=== PATIENT | male | born 1980 | race Caucasian/White ===

== ENCOUNTER 2021-10-07 16:02 | Emergency (ER) | payer MEDICAID ==
[~2021-10-07] VITALS: Ht 185.4 cm; Wt 83.9 kg
[2021-10-07] MEDS ORDERED: CLONOPIN PO (16:11)
--- NOTE | 2021-10-07 16:11 | NUR ---
PT WAS PLACED IN WAITING AREA. NO AVAILABLE BEDS IN ER AT THIS TIME.
--- NOTE | 2021-10-07 16:25 | NUR ---
DR MORALES TALKED TO THE PT. PT ELOPED FROM ER AFTER THAT.
== END 2021-10-07 16:28 | disposition left against medical advice (07) ==
LOC: ER 16:02
DX: F41.9 Anxiety disorder, unspecified (principal); Z76.0 Encounter for issue of repeat prescription; F41.0 Panic disorder [episodic paroxysmal anxiety]
CPT/HCPCS: A4663

== ENCOUNTER 2021-10-30 20:24 | Emergency (ER) | payer MEDICAID ==
[~2021-10-30] VITALS: Ht 185.4 cm; Wt 83.9 kg
[~2021-10-30 20:24] MED LIST: CLONOPIN PO
--- NOTE | 2021-10-30 20:38 | NUR ---
Dr. Watson at bedside for MSE.
[2021-10-30] MEDS ORDERED: ONDANSETRON ODT 4 MG TAB.RAPDIS SL ONE (20:45)
[2021-10-30] MEDS ORDERED: CODE1CAP24 PO (20:45)
[2021-10-30] MEDS ORDERED: BUTALB/ACETAMINOPHEN/CAFFEINE CAPSULE PO PRN (20:45)
[2021-10-30] MEDS ORDERED: HYDROCODONE/APAP 10-325 MG TABLET PO ONE (20:45)
[2021-10-30] MEDS ORDERED: BUTALB/ACETAMINOPHEN/CAFFEINE CAPSULE ONE (20:54)
[2021-10-30] MEDS ORDERED: ONDANSETRON ODT 4 MG TAB.RAPDIS ONE (20:54)
[2021-10-30] MEDS ORDERED: HYDROCODONE/APAP 10-325 MG TABLET ONE (20:55)
--- NOTE | 2021-10-30 20:55 | NUR ---
Patient given written and verbal discharge instructions. Patient verbalizes understanding of instructions. Patient is ambulatory with steady gait. Refuses offer of residential placement. Patient given list of available shelters in surrounding area. Pt out of ER with steady gait, no acute signs of distress, VSS, all belongings taken.
[2021-10-30 20:56] VITALS: BP 129/87
== END 2021-10-30 20:57 | disposition home or self-care (01) ==
LOC: ER 20:26
DX: G43.909 Migraine, unspecified, not intractable, without status migrainosus (principal); F41.9 Anxiety disorder, unspecified; Z79.899 Other long term (current) drug therapy
CPT/HCPCS: A4663; Q0162

== ENCOUNTER 2021-11-04 15:50 | Emergency (ER) | payer MEDICAID ==
[~2021-11-04] VITALS: Ht 185.4 cm; Wt 86.2 kg
[~2021-11-04 15:50] MED LIST changes: +CODE1CAP24 PO
[2021-11-04] MEDS ORDERED: DIPH25CA83 PO (16:13)
[2021-11-04] MEDS ORDERED: METO-295 PO (16:13)
[2021-11-04] MEDS ORDERED: diphenhydrAMINE 50 MG/1 ML VIAL IM ONE (16:15)
[2021-11-04] MEDS ORDERED: METOCLOPRAMIDE HCL 10 MG/2 ML VIAL IM ONE (16:15)
[2021-11-04] MEDS ORDERED: diphenhydrAMINE 50 MG/1 ML VIAL ONE (16:16)
[2021-11-04] MEDS ORDERED: METOCLOPRAMIDE HCL 10 MG/2 ML VIAL ONE (16:17)
--- NOTE | 2021-11-04 16:23 | NUR ---
Gave pt RX and d/c instructions, pt verbalized understanding. Not driving
== END 2021-11-04 16:29 | disposition home or self-care (01) ==
LOC: ER 15:50
DX: G43.909 Migraine, unspecified, not intractable, without status migrainosus (principal); Z59.01 Sheltered homelessness; K51.90 Ulcerative colitis, unspecified, without complications
CPT/HCPCS: 96372 ×2; 99284; J1200; J2765; A4663

== ENCOUNTER → 2022-01-16 | Emergency (ER) | payer MEDICAID ==
[~2022-01-16] VITALS: Ht 185.4 cm; Wt 90.7 kg
[~2022-01-16] MED LIST changes: +DIPH25CA83 PO; +IV NS 1000 ML 1,000 ML IV ONE; +KETOROLAC TROMETHAMINE 30 MG INJ IVP ONE; +KETOROLAC TROMETHAMINE 30 MG INJ ONE; +MAGNESIUM SULFATE/D5W 200 ML ONE; +METO-295 PO; +METOCLOPRAMIDE HCL 10 MG/2 ML VIAL IV ONE; +METOCLOPRAMIDE HCL 10 MG/2 ML VIAL ONE; +diphenhydrAMINE 50 MG/1 ML VIAL IV ONE; +diphenhydrAMINE 50 MG/1 ML VIAL ONE
--- NOTE | 2022-01-16 19:30 | NUR ---
Brief report received from charge machine operator Nathaniel BARRETT using SBAR method. Pt has good color and temp, but has desheveled, grimmy unkept appearance. VSS, PE WNL. Pt appears to be a healthy individual with no serious med issues, poss psych history as he appears to be living on the streets aeb torn grimmy cloths, the layering of clothes one on top of the other. Pt is AAOx4, completely lucid and appears bright and soft spoken, is able to carry a conversation. 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 So pt's story is a little suspect.
[2022-01-16] MEDS: MAGNESIUM SULFATE/D5W 100 ML IV SCH ×2 (22:11→22:26)
--- NOTE | 2022-01-16 23:30 | NUR ---
EDMD at bedside to discuss dispo with pt. MATHEW paperwork will be printed out next.
== END | disposition home or self-care (01) ==
LOC: ER 19:21
DX: G43.909 Migraine, unspecified, not intractable, without status migrainosus (principal); R00.0 Tachycardia, unspecified; Z59.01 Sheltered homelessness; F41.9 Anxiety disorder, unspecified; G47.00 Insomnia, unspecified
CPT/HCPCS: 96361; 96365; 96375; 99284; J1200; J1885; J2765; J3475; A4663; J7030

== ENCOUNTER 2022-02-23 22:57 | Emergency (ER) | payer MEDICAID ==
[~2022-02-23] VITALS: Ht 185.4 cm; Wt 88.5 kg
[~2022-02-23 22:57] MED LIST changes: -IV NS 1000 ML 1,000 ML IV ONE; -KETOROLAC TROMETHAMINE 30 MG INJ IVP ONE; -KETOROLAC TROMETHAMINE 30 MG INJ ONE; -MAGNESIUM SULFATE/D5W 200 ML ONE; -METOCLOPRAMIDE HCL 10 MG/2 ML VIAL IV ONE; -METOCLOPRAMIDE HCL 10 MG/2 ML VIAL ONE; -diphenhydrAMINE 50 MG/1 ML VIAL IV ONE; -diphenhydrAMINE 50 MG/1 ML VIAL ONE
--- NOTE | 2022-02-23 23:12 | NUR ---
Dr Watson into eval patient.
[2022-02-23] MEDS ORDERED: HYDROMORPHONE 1 MG/1 ML DISP.SYRIN IM ONE (23:15)
[2022-02-23] MEDS ORDERED: ONDANSETRON ODT 4 MG TAB.RAPDIS SL ONE (23:15)
[2022-02-23] MEDS ORDERED: BUTALB/ACETAMINOPHEN/CAFFEINE CAPSULE PO PRN (23:15)
[2022-02-23] MEDS ORDERED: CODE1CAP24 PO (23:17)
[2022-02-23] MEDS ORDERED: ONDANSETRON ODT 4 MG TAB.RAPDIS ONE (23:23)
[2022-02-23] MEDS ORDERED: BUTALB/ACETAMINOPHEN/CAFFEINE CAPSULE ONE (23:24)
[2022-02-23] MEDS ORDERED: HYDROMORPHONE 2 MG/1 ML DISP.SYRIN ONE (23:24)
--- NOTE | 2022-02-23 23:30 | NUR ---
Patient given written and verbal discharge instructions. Patient verbalizes understanding of instructions. Patient is ambulatory with steady gait. Refuses offer of group home placement. Patient given list of available shelters in surrounding area.
[2022-02-23 23:31] VITALS: BP 118/66
== END 2022-02-23 23:31 | disposition home or self-care (01) ==
LOC: ER 22:59
DX: G43.909 Migraine, unspecified, not intractable, without status migrainosus (principal); Z59.00 Homelessness unspecified; G47.00 Insomnia, unspecified; F41.9 Anxiety disorder, unspecified
CPT/HCPCS: 96372; 99283; J1170; A4663; Q0162

== ENCOUNTER 2022-03-26 20:04 | Emergency (ER) | payer MEDICAID ==
[~2022-03-26] VITALS: Ht 182.9 cm; Wt 86.2 kg
[2022-03-26] MEDS ORDERED: diphenhydrAMINE 50 MG/1 ML VIAL IM ONE (21:15)
[2022-03-26] MEDS ORDERED: METOCLOPRAMIDE HCL 10 MG/2 ML VIAL IM ONE (21:15)
[2022-03-26] MEDS ORDERED: diphenhydrAMINE 50 MG/1 ML VIAL ONE (21:16)
[2022-03-26] MEDS ORDERED: METOCLOPRAMIDE HCL 10 MG/2 ML VIAL ONE (21:16)
[2022-03-26] MEDS ORDERED: CODE1CAP24 PO (23:38)
[2022-03-26 23:48] VITALS: BP 130/80
== END 2022-03-26 23:49 | disposition home or self-care (01) ==
LOC: ER 20:05
DX: G43.909 Migraine, unspecified, not intractable, without status migrainosus (principal); F17.210 Nicotine dependence, cigarettes, uncomplicated; Z59.00 Homelessness unspecified; K51.90 Ulcerative colitis, unspecified, without complications
CPT/HCPCS: A4663; J1200; J2765

== ENCOUNTER 2022-04-09 13:52 | Emergency (ER) | payer MEDICAID ==
[~2022-04-09] VITALS: Ht 185.4 cm; Wt 88.5 kg
[2022-04-09] MEDS ORDERED: diphenhydrAMINE 50 MG/1 ML VIAL IM ONE (14:15)
[2022-04-09] MEDS ORDERED: METOCLOPRAMIDE HCL 10 MG/2 ML VIAL IM ONE (14:15)
[2022-04-09] MEDS ORDERED: CODE1CAP24 PO (14:20)
[2022-04-09] MEDS ORDERED: METO-295 PO (14:20)
[2022-04-09] MEDS ORDERED: METOCLOPRAMIDE HCL 10 MG/2 ML VIAL ONE (14:23)
[2022-04-09] MEDS ORDERED: diphenhydrAMINE 50 MG/1 ML VIAL ONE (14:23)
--- NOTE | 2022-04-09 14:35 | NUR ---
Medications given as ordered. Patient states he is not driving and is taking the bus today. DC, Rx (including all Rx precautions and warnings) given and explained to patient who states he understands all instructions
== END 2022-04-09 14:36 | disposition home or self-care (01) ==
LOC: ER 13:52
DX: G43.909 Migraine, unspecified, not intractable, without status migrainosus (principal); Z76.0 Encounter for issue of repeat prescription; F17.210 Nicotine dependence, cigarettes, uncomplicated; K51.90 Ulcerative colitis, unspecified, without complications; M19.90 Unspecified osteoarthritis, unspecified site
CPT/HCPCS: 96372 ×2; 99284; 99406; J1200; J2765; A4663

== ENCOUNTER 2022-04-18 15:54 | Emergency (ER) | payer MEDICAID ==
[~2022-04-18] VITALS: Ht 185.4 cm; Wt 88.5 kg
[2022-04-18] MEDS ORDERED: METO-295 PO (16:44)
[2022-04-18] MEDS ORDERED: METOCLOPRAMIDE HCL 10 MG/2 ML VIAL ONE (16:44)
[2022-04-18] MEDS ORDERED: BUTA1CAP46 PO (16:44)
[2022-04-18] MEDS ORDERED: diphenhydrAMINE 50 MG/1 ML VIAL ONE (16:44)
[2022-04-18] MEDS ORDERED: KETOROLAC TROMETHAMINE 60 MG INJ IM ONE ×2 (16:44→16:45)
[2022-04-18] MEDS ORDERED: diphenhydrAMINE 50 MG/1 ML VIAL IM ONE (16:45)
[2022-04-18] MEDS ORDERED: METOCLOPRAMIDE HCL 10 MG/2 ML VIAL IM ONE (16:45)
--- NOTE | 2022-04-18 16:51 | NUR ---
PT WAS EVALUATED BY DR BAKER. PT WAS D/C'd TO HOME. D/C INSTRUCTIONS GIVEN TO THE PT BY DR BAKER.
[2022-04-18 16:54] VITALS: BP 142/78
== END 2022-04-18 17:25 | disposition home or self-care (01) ==
LOC: ER 15:56
DX: G43.909 Migraine, unspecified, not intractable, without status migrainosus (principal); Z76.0 Encounter for issue of repeat prescription; F17.210 Nicotine dependence, cigarettes, uncomplicated
CPT/HCPCS: 96372 ×2; 99284; J1200; J1885; J2765; A4663

== ENCOUNTER 2022-05-21 19:50 | Emergency (ER) | payer MEDICAID ==
[~2022-05-21] VITALS: Ht 185.4 cm; Wt 88.5 kg
[~2022-05-21 19:50] MED LIST changes: +BUTA1CAP46 PO
--- NOTE | 2022-05-21 20:18 | NUR ---
Dr. Mckeon at bedside for MSE.
[2022-05-21] MEDS ORDERED: diphenhydrAMINE 50 MG/1 ML VIAL ONE (20:25)
[2022-05-21] MEDS ORDERED: METOCLOPRAMIDE HCL 10 MG/2 ML VIAL ONE (20:25)
[2022-05-21] MEDS ORDERED: diphenhydrAMINE 50 MG/1 ML VIAL IM ONE (20:30)
[2022-05-21] MEDS ORDERED: METOCLOPRAMIDE HCL 10 MG/2 ML VIAL IM ONE (20:30)
[2022-05-21] MEDS ORDERED: CODE1CAP24 PO (21:08)
--- NOTE | 2022-05-21 21:12 | NUR ---
Patient given written and verbal discharge instructions. Patient verbalizes understanding of instructions. Patient is ambulatory with steady gait. Refuses offer of half-way placement. Patient given list of available shelters in surrounding area. VSS, no acute signs of distress, all belongings taken, refuses all other services available at this time.
[2022-05-21 21:14] VITALS: BP 142/89
== END 2022-05-21 21:14 | disposition home or self-care (01) ==
LOC: ER 19:52
DX: G43.909 Migraine, unspecified, not intractable, without status migrainosus (principal); F17.210 Nicotine dependence, cigarettes, uncomplicated
CPT/HCPCS: 96372; 99283; 99406; J1200; J2765; A4663

== ENCOUNTER 2022-06-18 19:10 | Emergency (ER) | payer MEDICAID ==
[~2022-06-18] VITALS: Ht 185.4 cm; Wt 93.0 kg
--- NOTE | 2022-06-18 20:10 | NUR ---
Dr bal at bedside, MSE in progress.
[2022-06-18] MEDS ORDERED: CODE1CAP24 PO (20:18)
[2022-06-18] MEDS ORDERED: KETOROLAC TROMETHAMINE 30 MG INJ ONE (20:19)
[2022-06-18] MEDS ORDERED: KETOROLAC TROMETHAMINE 30 MG INJ IM ONE (20:30)
--- NOTE | 2022-06-18 20:36 | NUR ---
Patient discharged to home in stable condition. Written and verbal after care instructions given. Patient verbalizes understanding of instructions. Stressed follow up or return to ER for worsening s/s. pt ambulated with steady gait. denies pain. no SOB. no Chest pain. AOx4
[2022-06-18 20:37] VITALS: BP 127/74
== END 2022-06-18 20:39 | disposition home or self-care (01) ==
LOC: ER 19:10
DX: G43.909 Migraine, unspecified, not intractable, without status migrainosus (principal); Z76.0 Encounter for issue of repeat prescription; F17.210 Nicotine dependence, cigarettes, uncomplicated; Z59.00 Homelessness unspecified
CPT/HCPCS: 99283; 96372; J1885; A4663

== ENCOUNTER 2022-06-29 09:19 | Emergency (ER) | payer MEDICAID ==
[~2022-06-29] VITALS: Ht 185.4 cm; Wt 90.7 kg
--- NOTE | 2022-06-29 09:48 | NUR ---
PT IS IN ROOM #3. DR HAYES EVALUATED THE PT.
[2022-06-29] MEDS ORDERED: HYDR-3972 PO (10:11)
--- NOTE | 2022-06-29 10:23 | NUR ---
PT WAS D/C'd TO HOME. S/C INSTRUCTIONS GIVEN TO THE PT BY DR HAYES.
[2022-06-29 10:24] VITALS: BP 136/88
== END 2022-06-29 10:24 | disposition home or self-care (01) ==
LOC: ER 09:19
DX: S02.92XD Unspecified fracture of facial bones, subsequent encounter for fracture with routine healing (principal); Y09 Assault by unspecified means; Z76.0 Encounter for issue of repeat prescription; G89.29 Other chronic pain
CPT/HCPCS: A4663

== ENCOUNTER 2022-07-09 18:03 | Emergency (ER) | payer MEDICAID ==
[~2022-07-09] VITALS: Ht 185.4 cm; Wt 90.7 kg
[~2022-07-09 18:03] MED LIST changes: +HYDR-3972 PO
--- NOTE | 2022-07-09 18:34 | NUR ---
PT IS IN ROOM #2A. DR MORALES EVALUATED THE PT.
--- NOTE | 2022-07-09 19:03 | NUR ---
PT WAS D/C'd TO HOME. D/C INSTRUCTIONS GIVEN TO THE PT BY DR MORALES.
[2022-07-09 19:04] VITALS: BP 145/72
== END 2022-07-09 19:05 | disposition home or self-care (01) ==
LOC: ER 18:03
DX: R51.9 Headache, unspecified (principal); Z76.0 Encounter for issue of repeat prescription; S02.92XD Unspecified fracture of facial bones, subsequent encounter for fracture with routine healing; Y09 Assault by unspecified means; F17.210 Nicotine dependence, cigarettes, uncomplicated
CPT/HCPCS: A4663

== ENCOUNTER 2022-08-24 17:32 | Emergency (ER) | payer MEDICAID ==
[~2022-08-24] VITALS: Ht 182.9 cm; Wt 86.2 kg
--- NOTE | 2022-08-24 19:15 | NUR ---
change of shift report from Hanny BARRETT
[2022-08-24] MEDS ORDERED: HYDR-4209 PO (20:36)
--- NOTE | 2022-08-24 20:39 | NUR ---
Patient discharged to home in stable condition. Written and verbal after care instructions given. Patient verbalizes understanding of instructions. Stressed follow up or return to ER for worsening s/s. Patient is a/ox4, NAD noted. patient is able to walk with steady gait.
[2022-08-24 20:40] VITALS: BP 115/75
== END 2022-08-24 20:41 | disposition home or self-care (01) ==
LOC: ER 17:37
DX: S92.252D Displaced fracture of navicular [scaphoid] of left foot, subsequent encounter for fracture with routine healing (principal); X58.XXXD Exposure to other specified factors, subsequent encounter; M89.8X8 Other specified disorders of bone, other site; Z91.19 Patient's noncompliance with other medical treatment and regimen; F17.210 Nicotine dependence, cigarettes, uncomplicated; G43.909 Migraine, unspecified, not intractable, without status migrainosus
CPT/HCPCS: 73110; A4663

== ENCOUNTER 2022-10-31 12:56 | Emergency (ER) | payer MEDICAID ==
[~2022-10-31] VITALS: Ht 182.9 cm; Wt 87.3 kg
[~2022-10-31 12:56] MED LIST changes: +HYDR-4209 PO
[2022-10-31 14:00] LABS: HEMATOCRIT 39.3 % (36.7-47.1); MEAN CORPUSCULAR VOLUME 89.5 fL (73.0-96.2); PLATELET COUNT (AUTO) 301 K/uL (152-348)
[2022-10-31 14:12] LABS: ALANINE AMINOTRANSFERASE 30 U/L (16-63); ALKALINE PHOSPHATASE 93 U/L (50-136); ASPARTATE AMINOTRANSFERASE 16 U/L (15-37); BILIRUBIN,DIRECT 0.1 mg/dL (0.0-0.2); BILIRUBIN,TOTAL 0.5 mg/dL (0.2-1.0); CARBON DIOXIDE 25 mmol/L (21-32); CHLORIDE 105 mmol/L (98-107); CREATININE 1.1 mg/dL (0.6-1.3); GLUCOSE 103 mg/dL (74-106); POTASSIUM 3.8 mmol/L (3.5-5.1); TOTAL PROTEIN, SERUM 7.4 g/dL (6.4-8.2); UREA NITROGEN, BLOOD 18 mg/dL (7-18)
[2022-10-31 14:13] LABS: *BILIRUBIN,URIN NEGATIVE (NEGATIVE); *BLOOD, URINE NEGATIVE (NEGATIVE); *CLARITY,URINE CLEAR (CLEAR); *COLOR,URINE YELLOW (YELLOW); *KETONES,URINE NEGATIVE (NEGATIVE); *UROBILINOGEN,URINE 0.2 E.U./dl (NORMAL); LEUKOCYTE ESTERASE ,URINE NEGATIVE (NEGATIVE); NITRITE, URINE NEGATIVE (NEGATIVE); PH,URINE 8.5 (5.0-8.0); UGLUCOSE NEGATIVE (NEGATIVE)
[2022-10-31 14:16] LABS: ACETAMINOPHEN < 2.0 ug/mL (10-30); ETHANOL < 3 MG/DL (0-0)
[2022-10-31 14:26] LABS: *AMPHETAMINE, URINE NEGATIVE (NEGATIVE); *CANNABINOID, URINE NEGATIVE (NEGATIVE); *COCCAINE, URINE NEGATIVE (NEGATIVE); *OPIATE, URINE NEGATIVE (NEGATIVE); *PHENCYCLIDINE SCREEN,URINE NEGATIVE (NEGATIVE)
--- NOTE | 2022-10-31 15:38 | NUR ---
Pt arrived with c/o suicidal ideation, stated that his plan is to get hit by cars. Pt also has a fx of the right scaphoid. Seen by MARK for MSE.
--- NOTE | 2022-10-31 15:39 | NUR ---
Called [facility] in [place] and tallked to Geraldine from intake dept about pt's voluntary admission to the facility. Sent copy of the clinicals and they will be calling back once they have evaluated the pt's information. Call # and fax # .
[2022-10-31] MEDS ORDERED: KETOROLAC TROMETHAMINE 15 MG INJ IM ONE (16:00)
[2022-10-31] MEDS ORDERED: ACETAMINOPHEN 325 MG TABLET PO ONE (16:00)
[2022-10-31] MEDS ORDERED: ACETAMINOPHEN 325 MG TABLET ONE (16:07)
[2022-10-31] MEDS ORDERED: KETOROLAC TROMETHAMINE 15 MG INJ ONE (16:07)
--- NOTE | 2022-10-31 18:51 | NUR ---
Called Intake Department from [facility] regarding pt's transfer status, spoke to Unique stated that they will call back once pt is cleared to be admitted.
--- NOTE | 2022-10-31 23:50 | NUR ---
Joan from [facility] intake gave transfer info. Patient will be going to [facility] with accepting MD DR Donis. Call for report is
[2022-11-01 02:12] VITALS: BP 147/76
--- NOTE | 2022-11-01 02:17 | NUR ---
Gave SBAR report [facility] ambulance unit [id number].
== END 2022-11-01 03:11 ==
LOC: ER 12:57
DX: R45.851 Suicidal ideations (principal); F32.A Depression, unspecified; Z59.00 Homelessness unspecified; K51.90 Ulcerative colitis, unspecified, without complications; F41.9 Anxiety disorder, unspecified; Z83.3 Family history of diabetes mellitus; Z82.49 Family history of ischemic heart disease and other diseases of the circulatory system; F19.10 Other psychoactive substance abuse, uncomplicated; S62.102K Fracture of unspecified carpal bone, left wrist, subsequent encounter for fracture with nonunion; X58.XXXD Exposure to other specified factors, subsequent encounter; Z20.822 Contact with and (suspected) exposure to COVID-19
CPT/HCPCS: 80076; 80048; 81003; 85025; 87426; 36415; 99285; 96372; 80299; 80320; 80307; J1885; A4663; G0480

== ENCOUNTER 2022-11-17 21:33 | Emergency (ER) | payer MEDICAID ==
[~2022-11-17] VITALS: Ht 182.9 cm; Wt 88.5 kg
[2022-11-17 22:51] LABS: HEMATOCRIT 42.1 % (36.7-47.1); PLATELET COUNT (AUTO) 281 K/uL (152-348)
[2022-11-17 22:53] LABS: CREATININE 1.3 mg/dL (0.6-1.3); POTASSIUM 3.6 mmol/L (3.5-5.1)
[2022-11-17 23:01] LABS: ETHANOL < 3 MG/DL (0-0)
[2022-11-17 23:06] LABS: *BILIRUBIN,URIN NEGATIVE (NEGATIVE); *BLOOD, URINE NEGATIVE (NEGATIVE); *CLARITY,URINE CLEAR (CLEAR); *COLOR,URINE YELLOW (YELLOW); *KETONES,URINE 1+ (NEGATIVE); *UROBILINOGEN,URINE 0.2 E.U./dl (NORMAL); LEUKOCYTE ESTERASE ,URINE NEGATIVE (NEGATIVE); NITRITE, URINE NEGATIVE (NEGATIVE); UGLUCOSE NEGATIVE (NEGATIVE)
[2022-11-17 23:14] LABS: *AMPHETAMINE, URINE NEGATIVE (NEGATIVE); *CANNABINOID, URINE NEGATIVE (NEGATIVE); *COCCAINE, URINE NEGATIVE (NEGATIVE); *OPIATE, URINE NEGATIVE (NEGATIVE); *PHENCYCLIDINE SCREEN,URINE NEGATIVE (NEGATIVE)
--- NOTE | 2022-11-18 02:03 | NUR ---
Medically cleared by Dr Lepe. Called [facility] intake [phone] and spoke to Rodríguez who requested for clinical to be faxed to .
--- NOTE | 2022-11-18 03:45 | NUR ---
ART FROM [facility] INTAKE CALLED BACK WITH TRANSFER INFO. PATIENT WILL BE GOING TO [facility]. DR RAMIREZ IS ACCEPTING MD. CALL FOR REPORT IS
--- NOTE | 2022-11-18 04:14 | NUR ---
Called Becky BARRETT from [facility], endorsed pt. status
[2022-11-18 04:56] VITALS: BP 120/80
== END 2022-11-18 04:14 ==
LOC: ER 21:34
DX: F32.A Depression, unspecified (principal); R45.851 Suicidal ideations; Z59.00 Homelessness unspecified; Z20.822 Contact with and (suspected) exposure to COVID-19; K51.90 Ulcerative colitis, unspecified, without complications; Z83.3 Family history of diabetes mellitus; Z82.49 Family history of ischemic heart disease and other diseases of the circulatory system
CPT/HCPCS: 36415; 85025; A4663; G0480

== ENCOUNTER 2022-11-24 15:08 | Emergency (ER) | payer MEDICAID ==
[~2022-11-24] VITALS: Ht 182.9 cm; Wt 88.5 kg
--- NOTE | 2022-11-24 16:12 | NUR ---
AYAD contacted Elvis at [facility] ([phone]) and faxed the patient's facesheet (fax: [phone]). AYAD informed nurseRodríguez.
[2022-11-24 19:42] LABS: HEMATOCRIT 42.1 % (36.7-47.1); MEAN CORPUSCULAR HEMOGLOBIN 31.1 uug (23.8-33.4); MEAN CORPUSCULAR VOLUME 90.1 fL (73.0-96.2); PLATELET COUNT (AUTO) 295 K/uL (152-348)
[2022-11-24 20:14] LABS: THYROID STIMULATING HORMONE 2.572 mIU/mL (0.358-3.740)
[2022-11-24 20:21] LABS: ETHANOL < 3 MG/DL (0-0)
[2022-11-24 20:24] LABS: CARBON DIOXIDE 22 mmol/L (21-32); CHLORIDE 106 mmol/L (98-107); CREATININE 1.1 mg/dL (0.6-1.3); GLUCOSE 112 mg/dL (74-106); POTASSIUM 3.3 mmol/L (3.5-5.1); UREA NITROGEN, BLOOD 15 mg/dL (7-18)
[2022-11-24 20:30] LABS: ALANINE AMINOTRANSFERASE 24 U/L (16-63); ALKALINE PHOSPHATASE 84 U/L (50-136); ASPARTATE AMINOTRANSFERASE 16 U/L (15-37); BILIRUBIN,DIRECT 0.1 mg/dL (0.0-0.2); BILIRUBIN,TOTAL 0.5 mg/dL (0.2-1.0)
[2022-11-24 20:31] LABS: ACETAMINOPHEN < 2.0 ug/mL (10-30)
[2022-11-24 21:17] LABS: *BILIRUBIN,URIN NEGATIVE (NEGATIVE); *BLOOD, URINE NEGATIVE (NEGATIVE); *CLARITY,URINE CLEAR (CLEAR); *COLOR,URINE YELLOW (YELLOW); *KETONES,URINE NEGATIVE (NEGATIVE); *UROBILINOGEN,URINE 0.2 E.U./dl (NORMAL); LEUKOCYTE ESTERASE ,URINE NEGATIVE (NEGATIVE); NITRITE, URINE NEGATIVE (NEGATIVE); PH,URINE 7.5 (5.0-8.0); UGLUCOSE NEGATIVE (NEGATIVE)
--- NOTE | 2022-11-24 21:25 | NUR ---
Spoke to [facility], given fax #
[2022-11-24 21:26] LABS: *AMPHETAMINE, URINE POSITIVE (NEGATIVE); *CANNABINOID, URINE NEGATIVE (NEGATIVE); *COCCAINE, URINE POSITIVE (NEGATIVE); *OPIATE, URINE NEGATIVE (NEGATIVE); *PHENCYCLIDINE SCREEN,URINE NEGATIVE (NEGATIVE)
--- NOTE | 2022-11-24 21:43 | NUR ---
Received confirmation that fax went through.
[2022-11-25] MEDS ORDERED: LORAZEPAM 0.5 MG TABLET PO ONE (01:00)
--- NOTE | 2022-11-25 01:20 | NUR ---
Called [facility] ambulance to transport patient to [facility]. ETA is 90mins.
--- NOTE | 2022-11-25 01:23 | NUR ---
Gave SBAR report to Balwinder. [facility] [place].
[2022-11-25] MEDS ORDERED: LORAZEPAM 1 MG TABLET ONE (01:50)
--- NOTE | 2022-11-25 02:51 | NUR ---
Gave SBAR report to [facility] unit [facility], who will take patient to [facility].
== END 2022-11-25 03:11 | disposition short-term general hospital (02) ==
LOC: ER 15:08
DX: F32.A Depression, unspecified (principal); F19.10 Other psychoactive substance abuse, uncomplicated; F17.210 Nicotine dependence, cigarettes, uncomplicated; K51.90 Ulcerative colitis, unspecified, without complications; Z59.00 Homelessness unspecified; Z83.3 Family history of diabetes mellitus; Z82.49 Family history of ischemic heart disease and other diseases of the circulatory system
CPT/HCPCS: 36415; 84443; 85025; A4663; G0480

== ENCOUNTER 2022-12-03 12:13 | Emergency (ER) | payer MEDICAID ==
[~2022-12-03] VITALS: Ht 182.9 cm; Wt 88.5 kg
[2022-12-03] MEDS ORDERED: ONDANSETRON HCL 4 MG TABLET PO ONE (13:00)
[2022-12-03] MEDS ORDERED: LORAZEPAM 0.5 MG TABLET PO ONE (13:00)
[2022-12-03 13:01] LABS: HEMATOCRIT 42.5 % (36.7-47.1); MEAN CORPUSCULAR HEMOGLOBIN 30.5 uug (23.8-33.4); MEAN CORPUSCULAR VOLUME 90.9 fL (73.0-96.2); PLATELET COUNT (AUTO) 252 K/uL (152-348)
[2022-12-03 13:14] LABS: ALANINE AMINOTRANSFERASE 146 U/L (16-63); ALKALINE PHOSPHATASE 118 U/L (50-136); ASPARTATE AMINOTRANSFERASE 117 U/L (15-37); BILIRUBIN,DIRECT 0.1 mg/dL (0.0-0.2); BILIRUBIN,TOTAL 0.3 mg/dL (0.2-1.0); CARBON DIOXIDE 27 mmol/L (21-32); CHLORIDE 101 mmol/L (98-107); CREATININE 1.1 mg/dL (0.6-1.3); GLUCOSE 118 mg/dL (74-106); POTASSIUM 3.8 mmol/L (3.5-5.1); TOTAL PROTEIN, SERUM 7.9 g/dL (6.4-8.2); UREA NITROGEN, BLOOD 14 mg/dL (7-18)
[2022-12-03] MEDS ORDERED: LORAZEPAM 0.5 MG TABLET ONE (13:15)
[2022-12-03] MEDS ORDERED: ONDANSETRON HCL 4 MG TABLET ONE (13:15)
--- NOTE | 2022-12-03 13:43 | NUR ---
AYAD spoke over the phone with and faxed the patient's facesheet and history and physical to Rodríguez from [facility] (fax: [phone]). AYAD informed patient's nurse, Hilary and AYAD will continue to follow up.
[2022-12-03 13:45] LABS: *BILIRUBIN,URIN NEGATIVE (NEGATIVE); *BLOOD, URINE NEGATIVE (NEGATIVE); *CLARITY,URINE CLEAR (CLEAR); *COLOR,URINE YELLOW (YELLOW); *KETONES,URINE NEGATIVE (NEGATIVE); LEUKOCYTE ESTERASE ,URINE NEGATIVE (NEGATIVE); NITRITE, URINE NEGATIVE (NEGATIVE); PH,URINE 7.5 (5.0-8.0); UGLUCOSE NEGATIVE (NEGATIVE)
[2022-12-03 13:54] LABS: ACETAMINOPHEN < 2.0 ug/mL (10-30); ETHANOL < 3 MG/DL (0-0)
[2022-12-03 14:19] LABS: *AMPHETAMINE, URINE NEGATIVE (NEGATIVE); *CANNABINOID, URINE POSITIVE (NEGATIVE); *COCCAINE, URINE POSITIVE (NEGATIVE); *OPIATE, URINE POSITIVE (NEGATIVE); *PHENCYCLIDINE SCREEN,URINE NEGATIVE (NEGATIVE)
--- NOTE | 2022-12-03 14:59 | NUR ---
AYAD faxed the patient's clinical information to Rodríguez at [facility] (fax: [phone]). AYAD informed charge nurse Abbie and nurseHilary.
[2022-12-03] MEDS ORDERED: LORA-259 PO (15:10)
[2022-12-03] MEDS ORDERED: QUET200T PO (15:10)
[2022-12-03] MEDS ORDERED: TRAZ-182 PO (15:10)
--- NOTE | 2022-12-03 15:14 | NUR ---
Called report to [facility] report given to Alfredo pineda
--- NOTE | 2022-12-03 15:23 | NUR ---
Ambulance going to arrive in 70 to 90 min
--- NOTE | 2022-12-03 17:19 | NUR ---
Pt to [facility] via [facility] ambulance. SBAR report given to EMT.
== END 2022-12-03 17:30 ==
LOC: ER 12:13
DX: F32.A Depression, unspecified (principal); R45.851 Suicidal ideations; Z59.00 Homelessness unspecified; Z20.822 Contact with and (suspected) exposure to COVID-19; G47.00 Insomnia, unspecified; K51.90 Ulcerative colitis, unspecified, without complications; Z83.3 Family history of diabetes mellitus; Z82.49 Family history of ischemic heart disease and other diseases of the circulatory system
CPT/HCPCS: 36415; 85025; A4663; G0480; Q0162

== ENCOUNTER 2023-02-03 01:39 | Emergency (ER) | payer MEDICAID ==
[~2023-02-03] VITALS: Ht 182.9 cm; Wt 43.1 kg
[~2023-02-03 01:39] MED LIST changes: -CLONOPIN PO; -CODE1CAP24 PO; -DIPH25CA83 PO; -HYDR-4209 PO; +LORA-259 PO; -METO-295 PO; +QUET200T PO; +TRAZ-182 PO
[2023-02-03 03:04] LABS: ETHANOL < 3 MG/DL (0-0)
[2023-02-03 03:05] LABS: HEMATOCRIT 41.2 % (36.7-47.1); MEAN CORPUSCULAR HEMOGLOBIN 30.9 uug (23.8-33.4); MEAN CORPUSCULAR VOLUME 89.9 fL (73.0-96.2); PLATELET COUNT (AUTO) 279 K/uL (152-348)
[2023-02-03 03:10] LABS: BILIRUBIN,TOTAL 0.5 mg/dL (0.2-1.0); POTASSIUM 3.5 mmol/L (3.5-5.1); TOTAL PROTEIN, SERUM 7.3 g/dL (6.4-8.2)
[2023-02-03 03:10] LABS: *BILIRUBIN,URIN NEGATIVE (NEGATIVE); *BLOOD, URINE NEGATIVE (NEGATIVE); *CLARITY,URINE CLEAR (CLEAR); *COLOR,URINE YELLOW (YELLOW); *KETONES,URINE NEGATIVE (NEGATIVE); *UROBILINOGEN,URINE 0.2 E.U./dl (NORMAL); LEUKOCYTE ESTERASE ,URINE NEGATIVE (NEGATIVE); NITRITE, URINE NEGATIVE (NEGATIVE); PH,URINE 5.5 (5.0-8.0); UGLUCOSE NEGATIVE (NEGATIVE)
[2023-02-03 03:15] LABS: ACETAMINOPHEN < 2.0 ug/mL (10-30)
[2023-02-03 03:22] LABS: *AMPHETAMINE, URINE NEGATIVE (NEGATIVE); *CANNABINOID, URINE NEGATIVE (NEGATIVE); *COCCAINE, URINE NEGATIVE (NEGATIVE); *PHENCYCLIDINE SCREEN,URINE NEGATIVE (NEGATIVE)
--- NOTE | 2023-02-03 04:45 | NUR ---
Patient has been medically cleared for psych eval.
--- NOTE | 2023-02-03 05:03 | NUR ---
Called [facility] mid level clinician, made aware that patient is medically cleared and ready for psych eval.
[2023-02-03] MEDS ORDERED: busPIRone 5 MG TABLET PO ONE (06:15)
[2023-02-03] MEDS ORDERED: LORAZEPAM 0.5 MG TABLET PO ONE (06:15)
--- NOTE | 2023-02-03 06:15 | NUR ---
day treatment clinician/art therapist Lakia at bedside. Cliff varela in progress.
[2023-02-03] MEDS ORDERED: LORAZEPAM 0.5 MG TABLET ONE (06:16)
[2023-02-03] MEDS ORDERED: busPIRone 5 MG TABLET ONE (06:16)
--- NOTE | 2023-02-03 07:12 | NUR ---
Gave report to Leonor BARRETT
--- NOTE | 2023-02-03 09:09 | NUR ---
Paperwork faxed over to [facility], awaiting a call back from Elvis.
--- NOTE | 2023-02-03 09:09 | NUR ---
AYAD spoke with Elvis from [facility] and faxed him the patient's clinical information. AYAD will continue to follow up.
--- NOTE | 2023-02-03 09:48 | NUR ---
Patient is accepted at [facility] Accepting doctor: Dr. Swenson Bed will be available at 2pm Report to NENA Langley Number to give report:
--- NOTE | 2023-02-03 10:11 | NUR ---
Transportation set up for 1415 with [facility].
--- NOTE | 2023-02-03 13:06 | NUR ---
Gave report to Darlene BARRETT.
--- NOTE | 2023-02-03 14:18 | NUR ---
Ambulance here to pick patient up.
== END 2023-02-03 14:18 ==
LOC: ER 01:45
DX: R45.851 Suicidal ideations (principal); Z20.822 Contact with and (suspected) exposure to COVID-19; F32.A Depression, unspecified; F41.9 Anxiety disorder, unspecified; Z59.00 Homelessness unspecified; F14.90 Cocaine use, unspecified, uncomplicated; F12.90 Cannabis use, unspecified, uncomplicated; Z83.3 Family history of diabetes mellitus; Z82.49 Family history of ischemic heart disease and other diseases of the circulatory system; Z79.899 Other long term (current) drug therapy; K51.90 Ulcerative colitis, unspecified, without complications; Z86.69 Personal history of other diseases of the nervous system and sense organs
CPT/HCPCS: 36415; 85025; A4663; G0480

== ENCOUNTER 2023-02-06 23:08 | Emergency (ER) | payer MEDICAID ==
[~2023-02-06] VITALS: Ht 182.9 cm; Wt 88.5 kg
--- NOTE | 2023-02-06 23:16 | NUR ---
Dr Watson at bedside MSE in progress
[2023-02-06] MEDS ORDERED: ONDANSETRON ODT 4 MG TAB.RAPDIS ONE (23:25)
[2023-02-06] MEDS ORDERED: DEXAMETHASONE SOD PHOSPHATE 4 MG INJ ONE (23:25)
[2023-02-06] MEDS ORDERED: HYDROMORPHONE HCL 2 MG TABLET ONE (23:26)
[2023-02-06] MEDS ORDERED: DEXAMETHASONE SOD PHOSPHATE 4 MG INJ IM ONE (23:30)
[2023-02-06] MEDS ORDERED: ONDANSETRON ODT 4 MG TAB.RAPDIS SL ONE (23:30)
[2023-02-06] MEDS ORDERED: HYDROMORPHONE HCL 2 MG TABLET PO ONE (23:30)
[2023-02-06] MEDS ORDERED: ONDA4TAB5 PO (23:34)
[2023-02-06] MEDS ORDERED: HYDR4TAB57 PO (23:34)
--- NOTE | 2023-02-06 23:35 | NUR ---
Patient discharged to home in stable condition. Written and verbal after care instructions given. Patient verbalizes understanding of instructions. Stressed follow up or return to ER for worsening s/s. Patient is a/ox4, NAD noted. patient is ambulatory with steady gait. Patient has hx of SI but denies SI at the moment.
[2023-02-06 23:41] VITALS: BP 126/76
== END 2023-02-06 23:42 | disposition home or self-care (01) ==
LOC: ER 23:09
DX: G43.909 Migraine, unspecified, not intractable, without status migrainosus (principal); G89.4 Chronic pain syndrome; K51.90 Ulcerative colitis, unspecified, without complications; F17.210 Nicotine dependence, cigarettes, uncomplicated; Z59.00 Homelessness unspecified; Z79.899 Other long term (current) drug therapy; F32.A Depression, unspecified; F41.9 Anxiety disorder, unspecified
CPT/HCPCS: 99283; 99406; 96372; J1100; Q0162

== ENCOUNTER 2023-02-15 21:21 | Emergency (ER) | payer MEDICAID ==
[~2023-02-15] VITALS: Ht 182.9 cm; Wt 88.5 kg
[~2023-02-15 21:21] MED LIST changes: +HYDR4TAB57 PO; +ONDA4TAB5 PO
[2023-02-15] MEDS ORDERED: diphenhydrAMINE 50 MG/1 ML VIAL IV ONE (22:15)
[2023-02-15] MEDS ORDERED: KETOROLAC TROMETHAMINE 30 MG INJ IVP ONE (22:15)
[2023-02-15] MEDS ORDERED: METOCLOPRAMIDE HCL 10 MG/2 ML VIAL IV ONE (22:15)
[2023-02-15] MEDS ORDERED: IV NS 1000 ML 1,000 ML IV ONE (22:15)
[2023-02-15 22:32] LABS: HEMATOCRIT 40.8 % (36.7-47.1); MEAN CORPUSCULAR HEMOGLOBIN 30.6 uug (23.8-33.4); MEAN CORPUSCULAR VOLUME 90.2 fL (73.0-96.2); PLATELET COUNT (AUTO) 257 K/uL (152-348)
[2023-02-15] MEDS ORDERED: diphenhydrAMINE 50 MG/1 ML VIAL ONE (22:45)
[2023-02-15] MEDS ORDERED: METOCLOPRAMIDE HCL 10 MG/2 ML VIAL ONE (22:45)
[2023-02-15] MEDS ORDERED: KETOROLAC TROMETHAMINE 30 MG INJ ONE (22:45)
--- NOTE | 2023-02-15 22:45 | NUR ---
PT A,A AND O X 4 WITH C/O FALK PAIN 8/10 WITH MILD NAUSEA. PT'S IV STARTED TO HIS L HAND . NS 1 L BOLUS INFUSIBNG AND IVP MEDICATION GIVEN PER MD. PT EATING A MEAL.
[2023-02-15 22:47] LABS: CARBON DIOXIDE 26 mmol/L (21-32); CHLORIDE 105 mmol/L (98-107); GLUCOSE 97 mg/dL (74-106); POTASSIUM 3.6 mmol/L (3.5-5.1); UREA NITROGEN, BLOOD 13 mg/dL (7-18)
[2023-02-15 22:52] LABS: ETHANOL < 3 MG/DL (0-0)
[2023-02-15 22:53] LABS: ALANINE AMINOTRANSFERASE 32 U/L (16-63); ALKALINE PHOSPHATASE 97 U/L (50-136); ASPARTATE AMINOTRANSFERASE 16 U/L (15-37); BILIRUBIN,DIRECT 0.1 mg/dL (0.0-0.2); BILIRUBIN,TOTAL 0.4 mg/dL (0.2-1.0); TOTAL PROTEIN, SERUM 7.1 g/dL (6.4-8.2)
[2023-02-15 22:55] LABS: ACETAMINOPHEN < 2.0 ug/mL (10-30)
[2023-02-15 23:03] LABS: *BILIRUBIN,URIN NEGATIVE (NEGATIVE); *BLOOD, URINE NEGATIVE (NEGATIVE); *CLARITY,URINE CLEAR (CLEAR); *COLOR,URINE YELLOW (YELLOW); *KETONES,URINE NEGATIVE (NEGATIVE); *UROBILINOGEN,URINE 0.2 E.U./dl (NORMAL); LEUKOCYTE ESTERASE ,URINE NEGATIVE (NEGATIVE); NITRITE, URINE NEGATIVE (NEGATIVE); PH,URINE 7.5 (5.0-8.0); UGLUCOSE NEGATIVE (NEGATIVE)
[2023-02-15 23:11] LABS: *AMPHETAMINE, URINE NEGATIVE (NEGATIVE); *CANNABINOID, URINE NEGATIVE (NEGATIVE); *COCCAINE, URINE POSITIVE (NEGATIVE); *PHENCYCLIDINE SCREEN,URINE NEGATIVE (NEGATIVE)
--- NOTE | 2023-02-16 00:44 | NUR ---
Called [facility] for patient intake for pt placement.
--- NOTE | 2023-02-16 01:03 | NUR ---
Faxed patient information to [facility].
--- NOTE | 2023-02-16 07:10 | NUR ---
Gave report to Rodríguez BARRETT.
--- NOTE | 2023-02-16 07:30 | NUR ---
Received pt sleeping in gurney in room 5B with NAD noted. Disposition pending after social service evaluation.
--- NOTE | 2023-02-16 08:25 | NUR ---
AYAD contacted and faxed the patient's facesheet and clinical information to Elvis at [facility] ([phone]). AYAD informed nurseRodríguez and will continue to follow up.
--- NOTE | 2023-02-16 10:00 | NUR ---
Pt has been accepted at [facility] [place] after 1200. Accepting MD: Call [phone] for report. Called [facility] for transport, scheduled olive picker for [id number].
--- NOTE | 2023-02-16 11:10 | NUR ---
Pt transfered to [facility] via [facility] ambulance. Extensive SBAR report given to facility via telephone.
== END 2023-02-16 11:16 ==
LOC: ER 21:21
DX: F32.A Depression, unspecified (principal); R45.851 Suicidal ideations; G43.909 Migraine, unspecified, not intractable, without status migrainosus; F19.10 Other psychoactive substance abuse, uncomplicated; K51.90 Ulcerative colitis, unspecified, without complications; G47.00 Insomnia, unspecified; Z83.3 Family history of diabetes mellitus; Z82.49 Family history of ischemic heart disease and other diseases of the circulatory system; F17.210 Nicotine dependence, cigarettes, uncomplicated; Z59.00 Homelessness unspecified; Z20.822 Contact with and (suspected) exposure to COVID-19
CPT/HCPCS: 80076; 80048; 81003; 85025; 87426; 36415; 99284; 96361; 96374; 96375; 80299; 80320; 80307; J1200; J1885; J2765; J7040; A4663; G0480

== ENCOUNTER 2023-02-25 19:53 | Emergency (ER) | payer MEDICAID ==
[~2023-02-25] VITALS: Ht 182.9 cm; Wt 90.7 kg
--- NOTE | 2023-02-25 20:10 | NUR ---
Patient is ambulatory with a steady gait, observed patient walking to restroom in rm 4.
[2023-02-25 20:21] LABS: *BILIRUBIN,URIN NEGATIVE (NEGATIVE); *BLOOD, URINE NEGATIVE (NEGATIVE); *CLARITY,URINE SLIGHTLY CLOUDY (CLEAR); *COLOR,URINE YELLOW (YELLOW); *KETONES,URINE NEGATIVE (NEGATIVE); *UROBILINOGEN,URINE 0.2 E.U./dl (NORMAL); LEUKOCYTE ESTERASE ,URINE NEGATIVE (NEGATIVE); NITRITE, URINE NEGATIVE (NEGATIVE); PH,URINE 7.5 (5.0-8.0); UGLUCOSE NEGATIVE (NEGATIVE)
[2023-02-25 20:57] LABS: *AMPHETAMINE, URINE NEGATIVE (NEGATIVE); *CANNABINOID, URINE NEGATIVE (NEGATIVE); *COCCAINE, URINE POSITIVE (NEGATIVE); *PHENCYCLIDINE SCREEN,URINE NEGATIVE (NEGATIVE)
[2023-02-25 20:59] LABS: BACTERIA,URINE FEW /HPF (NONE SEEN); RBC,URINE 0-3 /HPF (0-3); SQUAMOUS EPITHELIAL CELL,UR FEW /HPF (NONE SEEN); WBC,URINE NONE SEEN /HPF (0-3)
[2023-02-25 21:00] LABS: URINE AMORPHOUS URATE MODERATE /HPF
--- NOTE | 2023-02-25 21:29 | NUR ---
Dr. Lepe at bedside. MSE in progress.
--- NOTE | 2023-02-25 21:38 | NUR ---
Patient provided a dinner tray.
--- NOTE | 2023-02-25 22:30 | NUR ---
Faxed patient summary report to [facility].
[2023-02-25 23:22] LABS: HEMATOCRIT 38.9 % (36.7-47.1); MEAN CORPUSCULAR HEMOGLOBIN 30.5 uug (23.8-33.4); MEAN CORPUSCULAR VOLUME 90.8 fL (73.0-96.2); PLATELET COUNT (AUTO) 217 K/uL (152-348)
[2023-02-25 23:42] LABS: ETHANOL < 3 MG/DL (0-0)
[2023-02-25 23:57] LABS: CARBON DIOXIDE 29 mmol/L (21-32); CHLORIDE 104 mmol/L (98-107); GLUCOSE 137 mg/dL (74-106); POTASSIUM 3.6 mmol/L (3.5-5.1); UREA NITROGEN, BLOOD 15 mg/dL (7-18)
--- NOTE | 2023-02-26 | NUR ---
Patient sleeping. Visble chest rise observed, NAD noted.
[2023-02-26 00:03] LABS: ACETAMINOPHEN < 10.0 ug/mL (10-30)
--- NOTE | 2023-02-26 00:52 | NUR ---
Received call back from [facility], patient accepted by Dr. De La Torre, going to room 212B, number to report .
--- NOTE | 2023-02-26 01:00 | NUR ---
Report given to NENA Damon from [facility].
--- NOTE | 2023-02-26 01:03 | NUR ---
Called [facility], eta 40 - 45 min.
--- NOTE | 2023-02-26 01:32 | NUR ---
[facility] has taken patient. Headed for [facility].
== END 2023-02-26 01:34 ==
LOC: ER 19:56
DX: F32.9 Major depressive disorder, single episode, unspecified (principal); R45.851 Suicidal ideations; F19.90 Other psychoactive substance use, unspecified, uncomplicated; G43.909 Migraine, unspecified, not intractable, without status migrainosus; F17.210 Nicotine dependence, cigarettes, uncomplicated; Z59.00 Homelessness unspecified; Z79.899 Other long term (current) drug therapy; Z20.822 Contact with and (suspected) exposure to COVID-19
CPT/HCPCS: 36415; 85025; A4663; G0480